=== PATIENT | male | born 1985 | race Caucasian/White ===

== ENCOUNTER 2021-01-03 16:57 | Emergency (ER) | payer SELFPAY | END 2021-01-03 18:40 | disposition home or self-care (01) | LOC: FER 16:57 | DX: S93.491A Sprain of other ligament of right ankle, initial encounter (principal); W22.8XXA Striking against or struck by other objects, initial encounter; Y92.009 Unspecified place in unspecified non-institutional (private) residence as the place of occurrence of the external cause | CPT/HCPCS: 73610 ==

== ENCOUNTER 2021-11-19 14:00 | Emergency (ER) | payer OTHER ==
[2021-11-19 15:58] LABS: BASOPHIL 0.4 % (0-2); EOSINOPHIL 1.6 % (0-5); HCT 39.2 % (42.0-52.0); HGB 12.9 g/dl (13.2-18.0); LYMPHOCYTE 15.2 % (15-48); MCH 30.6 pg (25.0-31.0); MCHC 32.9 g/dL (32.0-36.0); MCV 92.9 fL (78.0-100.0); MONOCYTE 9.4 % (0-12); MPV 9.6 fL (6.0-9.5); NEUTROPHIL 73.1 % (41-80); NRBC 0; PLT 429 K/uL (150-400); RBC 4.22 M/uL (4.70-6.00); RDW 13.8 % (11.5-14.0); WBC 6.8 K/uL (4.0-10.5)
[2021-11-19 17:11] LABS: ALBUMIN 3.8 g/dL (3.4-5.0); BILIRUBIN - TOTAL 0.5 mg/dL (0.2-1.0); BUN/CREAT RATIO (CALC) 19.2 RATIO; CREATININE 0.78 mg/dL (0.67-1.17); GLOBULIN (CALCULATION) 4.1 g/dL; POTASSIUM 4.3 mmol/L (3.5-5.1); TOTAL PROTEIN 7.9 g/dL (6.4-8.2)
[2021-11-19] MEDS ORDERED: PERCOCET 5-3251 EACH PO (17:27)
== END 2021-11-19 17:49 | disposition home or self-care (01) ==
LOC: FER 14:00
PROVIDERS: Internal Medicine
DX: S30.1XXA Contusion of abdominal wall, initial encounter (principal); Z88.1 Allergy status to other antibiotic agents; V29.9XXA Motorcycle rider (driver) (passenger) injured in unspecified traffic accident, initial encounter
CPT/HCPCS: 36415; 80053; 85025; Q9967